=== PATIENT | male | born 1980 | race Two or more races ===

== ENCOUNTER → 2018-08-29 | Emergency (ER) | payer OTHER ==
[~2018-08-29] VITALS: Ht 193 cm; Wt 95.3 kg
[~2018-08-29] MED LIST: KETO10TA2 PO; SKELAXIN800 MG PO
== END | disposition home or self-care (01) ==
LOC: ER 03:18
DX: S00.83XA Contusion of other part of head, initial encounter (principal); S10.83XA Contusion of other specified part of neck, initial encounter; S20.212A Contusion of left front wall of thorax, initial encounter; S20.211A Contusion of right front wall of thorax, initial encounter; W18.39XA Other fall on same level, initial encounter; Y93.89 Activity, other specified; Y92.098 Other place in other non-institutional residence as the place of occurrence of the external cause; Y99.8 Other external cause status